=== PATIENT | female | born 1955 | race Two or more races ===

== ENCOUNTER 2024-04-28 06:12 | Inpatient (IN) | payer OTHER, MEDICAID ==
[~2024-04-28] VITALS: Ht 165.1 cm; Wt 77.9 kg
[~2024-04-28 06:12] MED LIST: GABA-1250 PO; IBUP-1456 PO; MONT5CHW12 PO; TIOT17SP IN
[2024-04-28] MEDS ORDERED: levoFLOXacin 750MG 150 ML IV ONE (06:45)
--- NOTE | 2024-04-28 07:28 | DVHHP2 ---
Admitting Diagnosis: cervical spinal stenosis History of Present Illness Home Meds Reported Medications Ibuprofen (Ibuprofen) 800 Mg Tab, 800 MG PO, MG 04/22/24 Tiotropium [place] Monohydrate (Spiriva Respimat) 2.5 Mcg/Act Spr, 2.5 MCG IN, SPRAY 04/22/24 Montelukast Sodium (Singulair) 5 Mg Chw, 2 TAB PO DAILY, #30 TAB 5 Refills 04/22/24 Gabapentin (Gabapentin) 300 Mg Cap, 300 MG PO for 30 Days, MG 04/22/24 Timing/Duration of Neck Pain: Getting worse Quality of Neck Pain: Aching, Burning, Cramping Neck Pain Radiation: Head Method of Injury/Prior Factors: Other Modifying Factors for Neck Alisa: Movement, Pain medication Associated Symptoms of Neck Pa: Muscle spasms Review of Systems Constitutional: No symptom reported Ears, Nose, & Throat: No symptom reported Eyes: No symptom reported Pulmonary/Respiratory: No symptom reported Cardiovascular: No symptom reported Gastrointestinal: No symptom reported Genitourinary: No symptom reported Musculoskeletal: Neck pain Skin: No symptom reported Psychiatric: No symptom reported Endocrine: No symptom reported Hemotologic/Lymphatic: No symptom reported H&P Exam General Appeara: Well developed, Well nourished, Normal Appearance Head Exam: Normal inspection Neck Exam: Normal inspection, Non-tender, Normal alignment Eye Exam: bilateral eye Normal inspection, bilateral eye PERRL, bilateral eye EOMI Ear Exam: bilateral ear Auricle normal, bilateral ear Canal normal, bilateral ear TM normal Nasal Exam: Normal inspection Mouth: Normal Inspection Pulmonary/Respiratory: Normal inspection, Normal breath sounds, Chest non- tender, Lungs clear Cardiovascular/Chest: Normal inspection, Regular rate, Normal Rhythm Rectal Exam: Deferred Back Exam: Normal inspection Pelvic Exam: External exam normal, Bimanual exam normal, Speculum exam normal Male Genital Exam: Not done Shoulder Exam: Normal inspection, Non-tender, Normal ROM Elbow/Forearm Exam: Normal inspection, Non-tender, Normal ROM Wrist Exam: Normal inspection, Non-tender, Normal ROM Hand Exam: Normal inspection, Non-tender, Normal ROM Hip exam: Normal inspection, Non-tender, Normal range of motion Legs: bilateral leg non-tender, bilateral leg normal inspection, bilateral leg normal range of motion, bilateral leg no evidence of injury Knees: bilateral knee non-tender, bilateral knee normal inspection, bilateral knee normal range of motion, bilateral knee no evidence of injury Ankle Exam: bilateral ankle Normal inspection, bilateral ankle Non-tender, bilateral ankle Normal range of motion, bilateral ankle No evidence of injury Foot: bilateral foot non-tender, bilateral foot normal inspection, bilateral foot normal range of motion, bilateral foot no evidence of injury Tendon/ Neuro: Motor deficit, Sensory deficit ELECTROTYPE CASTER Exam: Normal hearing, Normal speech, PERRL Motor/Sensory: Sensory deficit, Weak motor strength RUE, Weak motor strength LUE Deep Tendon Ref: All intact Neuro/Mental St: Alert, Oriented Appearance: Appropriate appearance, Appropriate insight Eye contact/ Speech: Cooperative, Good eye contact, Normal speech Coordination/Gait: Abnormal gait Skin Exam: Normal inspection, Normal color, Warm/dry Lymphatic: Normal inspection Assessment/Plan Primary Diagnosis cervical spinal stenosis with severe radiculopathy Plan admit for elective cervical spinal surgery Plan discussed with: Patient MARLENA DALE MD Apr 28, 2024 07:28
[2024-04-28] MEDS ORDERED: fentaNYL CITRATE 100 MCG/2 ML VL ONE ×2 (07:50→07:56)
[2024-04-28] MEDS ORDERED: PROPOFOL 10 MG/ML 20 ML IV ONE ×3 (07:55→11:49)
[2024-04-28] MEDS ORDERED: PHENYLEPHRINE HCL 10 MG/ML VL ONE (08:03)
[2024-04-28] MEDS ORDERED: ONDANSETRON HCL 4 MG/2 ML VIAL IV PRN (08:15)
[2024-04-28] MEDS ORDERED: NITROGLYCERIN 0.4 MG SL TAB SL PRN (08:15)
[2024-04-28] MEDS ORDERED: MORPHINE SULFATE INJ 2 MG/ml SYRG IV PRN (08:15)
[2024-04-28] MEDS ORDERED: ACETAMINOPHEN 325 MG TAB PO PRN (08:15)
[2024-04-28] MEDS ORDERED: ePHEDrine SULFATE 50 MG/ML AMP ONE (08:41)
[2024-04-28] MEDS ORDERED: DexAMETHasone SOD PHOS 10MG/1ML VIAL INJ ONE (08:51)
[2024-04-28] MEDS ORDERED: ONDANSETRON HCL 4 MG/2 ML VIAL ONE (08:51)
[2024-04-28] MEDS ORDERED: fentaNYL CITRATE 5 ML ONE (10:03)
--- NOTE | 2024-04-28 10:09 | DVHOP2 ---
Operative Report - 2 Report Details Date: 04/28/24 Preop Diagnosis: cervical degenerative disc disease with spinal stenosis and cervical degenerative kyphosis causing incpacitating neck pain and radiculopathy Postop Diagnosis: 1. cervical degenerative disc disease with spinal stenosis and cervical degenerative kyphosis causing incpacitating neck pain and radiculopathy 2. cervical spondylolisthesdis at cervical 6/7 Surgeon: Henrry Doan MD Fish Bait Picker: Bekah Dover NP Anesthesiologist: shasta Anesthesia: General Consent: The patient was informed of the risks and benefits of the procedure. These include but are not limited to complications of anesthesia, postoperative infection, incomplete relief of symptoms, recurrence of symptoms, damage to blood vessels, nerves and tendons, deep venous thrombosis, pulmonary embolism and possible need for repeat surgery in the future. Name of Procedure Performed see detailed note Procedure Details Procedure Details: Pre Op Diagnosis: Cervical Degenerative Disk Disease and Severe Spinal Stenosis Causing incapacitating neck pain, radiculopathy and progressive neurologic deficit Post Op Diagnosis: 1. Cervical Degenerative Disk Disease and Spinal Stenosis Causing incapacitating neck pain, radiculopathy and progressive neurologic deficit Procedure: Cervical 3 to 4 anterior cervical discectomy with Cervical 3-4 foraminotomies and facetectomies to decompression the spinal canal and Cervical 4 nerve roots Cervical 4 to 5 anterior cervical discectomy with Cervical 4-5 foraminotomies and facetectomies to decompression the spinal canal and Cervical 5 nerve roots Cervical 5 to 6 anterior cervical discectomy with Cervical 5-6 foraminotomies and facetectomies to decompression the spinal canal and Cervical 6 nerve roots Cervical 6 to 7 anterior cervical discectomy with cervical 6-7 foraminotomies and facetectomies to decompress then spinal canal and cervical 7 nerve roots Cervical 3-7 anterior cervical Fusion Cervical 3-7 anterior cervical instrumentation with freestanding cages Cervical 3-4 placement of allograft prosthetic device Cervical 4-5 placement of allograft prosthetic device Cervical 5-6 placement of allograft prosthetic device Cervical 6-7 placement of allograft prosthetic device Microscope for micro dissection Surgeon: Henrry Doan MD Anesthesia: General Assist: Bekah Dover NP Fluids and EBL: see anesthesia note Procedure Note: The patient was seen in the Pre-anesthesia Care Unit and the site of the incision was initialed by me with a felt tipped marker. All questions by the patient were answered to the satisfaction of the patient and the chart was reviewed. The patient was taken to the operating room and placed supine on the [facility] Flat top table. General anesthesia was induced. Neuromonitoring leads were placed. A rolled towel was placed between the shoulder blades to hyperextend out the chest which will allow better exposure of the cervical spine. Halter traction to 10 pounds was placed. The arms were padded and adducted to the patients side making sure all pulses in the hands were present. Tape traction was undertaken on the shoulders to give us better radiographic exposure of the distal cervical spine. A gel-pad was placed under the occiput and 5 degrees of extension was placed on the neck without adverse effects to the patient. The anterior neck was prepped and draped. Pre-operative antibiotics were given 30 minutes prior to the start of the procedure. A c-arm fluoroscope was used to luciana out the incision site. At this time, a time out was taken per usual protocol. Next an incision was made through the skin with a 15 blade scalpel through the subcutaneous tissue down to the platysma. Self-retainers were placed. The platysma was incised along the longitudinal border with a Metzenbaum scissors. Blunt dissection was made through the deep cervical and pre-tracheal fascia taking care to protect the carotid sheath laterally and the Trachea/esophagus medially. The dissection was carried down to the prevertebral fascia. Any crossing vessels were ligated using a vascular clip or coagulated with a bovie. An esophageal retractor was next used to retract the trachea/esophagus and a bent [address] through the anterior annulus of the cervical disk and a lateral C-arm fluoroscopic image was taken to confirm that we were at the correct level. Next, bovie electrocautery was used to expose the bones of cervical 3,4,5,6 and bipolar electrocuatery was used to lift up the Longus colli and capitus muscles. Black-Belt Self Retainers were used to retract the longus colli and capitus muscles bilaterally as well as the trachea/esophagus to the right and the carotid sheath to the left. Smooth thin Black-Belt retractors were placed proximally and distally and a needle was placed again in the anterior annulus of the disk and an image taken to confirm the correct level. At this point, the microscope was wheeled in and an 11 blade scalpel incised the anterior annulus of the cervical 3/4 and 4/5 and 5/6 disks. Next, straight and curved curettes removed the remainder of the disks all the way down to the posterior longitudinal ligament. Carefully, a Kerison number one rongeur incised the posterior longitudinal ligament at the lateral end of the above disks and using a micro, blunt tip nerve hook to separate the posterior longitudinal ligament from the dura, alternating 1 mm and 2 mm Kerison rongeurs removed the posterior longitudinal ligament. Next, Kerison 1mm and 2 mm rongeurs were alternated to get under the uncinate processes and undercut them to perform foraminotomies and factectomies at the cervical 3/4 and 4/5 and 5/6 levels to decompress the central canal and cervical 4,5,6 and 7 nerve roots. Next the microscope was wheeled away and the c-arm fluoroscope was wheeled into the field and a lateral image was obtained. Increasing size graft trials were used starting at a 5 mm thick size until the proper tension in the disk space and height latter day obtained. We then placed final free standing cages at C3/4 and 4/5 ,5/6 . 7mm at C3/4 and C4/5 and 6mm at C5/6. Once the above 3 levels were decompressed and stabilized, a spondylolisthesis of about 5mm anteriorly that was unstable and moving 5mm was noted at the Cervical 6/7 level. The standard of care required stabilization of any spondylolisthesis at the adjacent level to the fusion construct so a discectomy was performed at the Cervical 6/7 disc without difficulty and a 7mm interbody device was palced at this level. The palced of the device reduced the spondylolisthsis at the Cervical 6/7 level. Satisfactory placement was confirmed in the AP and lateral views using a C-arm fluoroscope. Copious irrigation of the wound with sterile saline and all bleeding was controlled before closure initiated. At this point, a 10 Slov[place] [address] Drain was place deep to the Platysma muscle and the Platysma was approximated with one interrupted 0-Vicryl suture. The subcutaneous tissue was closed with interrupted 2-0 vicryl sutures and the skin was closed with berny. Sterile dressings were placed and a cervical collar placed, the patient extubated, transferred to the stretcher and taken to the Recovery Room in unremarkable condition. Other Notes: Following the case, in PACU, the patient had placement of a Denhoff J equivalent cervical collar and external bone stimulator Condition Stable Disposition Still a Patient HENRRY DOAN MD Apr 28, 2024 10:09
[2024-04-28 10:16] VITALS: PULSE 89; PULSE 92; RESP 12; O2SAT 98
--- NOTE | 2024-04-28 10:26 | POSTOP ---
Post-Operative Note Post-Operative Note Preop Diagnosis 1. cervical degenerative disc disease with spinal stenosis and cervical degenerative kyphosis causing incapacitating neck pain and radiculopathy 2. cervical spondylolisthesis at cervical 6/7 Postop Diagnosis: 1. cervical degenerative disc disease with spinal stenosis and cervical degenerative kyphosis causing incpacitating neck pain and radiculopathy 2. cervical spondylolisthesdis at cervical 6/7 Operation performed Cervical 3 to 7 anterior cervical discectomy with Cervical 3-7 foraminotomies and facetectomies to decompression the spinal canal and Cervical nerve roots Specimen None Anesthesia: General Anesthesiologist: Dr. Davidson Blood Loss(fluid mgmt) See anesthesia record Tourniquet Time None Surgeon Dr Henrry Doan Manager Risk Bekah Donovan [facility], DIRECTOR EHS Complications & Mgmt None Additional Remarks Disposition: -Pending -Discharge RX: Pending -Follow up appointment: [place] [id number] [facility] [address] [place] [phone] -Pain: - IV pain meds post op day 1, with PO supplementation, goal is to progress weaning off IV medications and control pain with PO only. morphine 1mg q 4 hours (PAIN 7-10) - P.O. analgesics:Tylenol 650MG (PAIN 1-3) [place] 10/325 mg (PAIN 4-6) - Muscle relaxers scheduled administration. This is a beneficial medications for the incisional pain as it is mostly related to muscle spasms. Flexeril 10 mg TID - Cepacol throat lozenges as needed for sore throat -Antibiotics Operative recommendations: -Postoperative dose:-Post operative antibiotics cefazolin 1 g IV piggyback every 8 hours x 48 hours total of 6 doses -DVT PPX: -Hold all chemical DVT/ blood thinners for 14 days postoperatively -use mechanical DVT PPX such as SCD's, ambulation -Activity: -Pending PT evaluation and patients progression -Sit at side of bed for meals -Goal: Ambulate independently and safely (may use assistive devices if needed) -Brace: - [place] collar for comfort per pt discretion, -Medical Therapy goals: -Afebrile- Patient may develop a expected post operative fever by day 2-3, this may not be accompanied with a elevation in WBC. if fever develops: Acetaminophen for fever. Albuterol nebulizer Tx every 12 hours for 24 hours to facilitate adequate lung expansion and prevent development of atelectasis. -Euglycemic: bloods sugars under 130mmol/L for optimal healing -Normotensive: Avoid events of hypertension. This helps to keep post operative healing intact and avoids destabilization of beneficial hemostatic coagulation. Drains -Bulb drains: record output and characteristics of the drainage at least once a shift. These will be to thumbprint compression unless otherwise ordered. Record output Wound drainage is described by type, color, amount, and odor. Drainage can be 1 serous: Clear and thin, may be present in healing healthy wound. 2 serosanguineous containing blood may also be present and healthy healing wound 3. Sanguinous primarily blood 4. Purulent this is thick, white, and pus like. It may be indicated to give of a infection and should constitute a call to the provider immediately with the plan that the sample should be cultured. -Reed: -DC in OR -Dressings -Anterior cervical patients: Initial surgical dressing may be reinforced if needed. If there is excessive bleeding, leaking, drainage in the bulb drain notify provider -Bowel management: -Colace 100mg bid -Diet: -Clear liquid diet and advance as patient tolerates within dietary limitations ( example: diabetic, Cardiac) -Incentive Spirometer: -10 x hour while awake, RN please educate and observe repeat demonstration, have IS at bedside POD #1 -X-rays: - none indicated at this time -Consults: -Physical Therapy evaluation, treatment recommendations, and discharge recommendations Call with questions Giovanna Donovan [facility]- Orthopaedic Spine Surgery nurse practitioner For Dr Pinky Doan [phone]- for staff use only Patient was examined, chart reviewed, labs evaluated, and diagnostic studies and findings analyzed. Case was discussed with Dr. Henrry Doan who formulated the plan of care. This medical document was created using an electronic medical record system with theScore dictation system. Although this document has been carefully reviewed, there might still be some phonetic and typographical errors. These areas are purely typographical due to imperfections of the software programs, and do not reflect any compromise in the patient's medical care. Date 04/28/24 Time 10:25 BEKAH DONOVAN NP Apr 28, 2024 10:26
[2024-04-28] MEDS ORDERED: ONDANSETRON HCL 4 MG/2 ML VIAL IV ONE (10:30)
[2024-04-28] MEDS ORDERED: MEPERIDINE HCL (25 MG/ML) 1ML VIAL IV PRN (10:30)
[2024-04-28 10:31] VITALS: O2SAT 99
[2024-04-28] MEDS ORDERED: MEPERIDINE HCL (50 MG/ML) 1 ML VIAL ONE (10:50)
[2024-04-28] MEDS: TRANEXAMIC ACID 20 ML ONE (10:51)
[2024-04-28] MEDS: LIDOCAINE W/ EPINEPHRINE 1% 20ML VIAL ONE (10:51)
[2024-04-28] MEDS: LIDOCAINE 2% JELLY 11ml (GLYDO) ONE (10:51)
[2024-04-28] MEDS: SUCCINYLCHOLINE CHLORIDE 20 MG/ML 10ML VIAL IV ONE (10:52)
[2024-04-28] MEDS: ceFAZolin 2 GM/D5W100ml 100 ML IV ONE (10:52)
[2024-04-28] MEDS: HYDROCORTISONE SOD SUCC 100 MG/2ML INJ VIAL IV ONE (11:54)
[2024-04-28] MEDS: ACETAMINOPHEN IV 1000 MG/100ML (10MG/ML) IV PRN (11:54)
[2024-04-28] MEDS: HYDROmorphone HCL 2 MG/ML VL/or syr IV PRN (12:02)
[2024-04-28] MEDS ORDERED: methylPREDNISolone SOD SUCC 40 MG/ML VL ONE (12:06)
[2024-04-28 12:36] VITALS: PULSE 102; RESP 12; O2SAT 99
--- NOTE | 2024-04-28 14:06 | DVH ---
EXAM: XY CERVICAL SPINE 3V, XY C ARM FLUOROSCOPY UP TO 60MIN HISTORY: C5-7 DISCECTOMY/FUSION FLUOROSCOPY TIME: 33.4 seconds Total dose: 3.52 mGy FLUOROSCOPY IMAGES: 12 TECHNIQUE: Intraoperative radiographs of the cervical spine were obtained. COMPARISON: None FINDINGS/IMPRESSION: Refer to intraoperative report for further evaluation.
[2024-04-28] MEDS: D5W/SOD CHLO 0.9% 1,000 ML IV SCH (14:48)
[2024-04-28] MEDS: ceFAZolin 1GM/50ML 50 ML IV SCH (14:48)
[2024-04-28] MEDS: CYCLOBENZAPRINE HCL 10 MG TAB PO SCH (14:50)
[2024-04-28 16:40] VITALS: BP 120/75; PULSE 102; RESP 17; TEMP 98.6; O2SAT 93
[2024-04-28] MEDS: HYDROcodone-ACET 10/325MG TAB PO PRN (16:41)
[2024-04-28 20:00] VITALS: PULSE 109; PULSE 88; RESP 18
[2024-04-28 21:00] VITALS: BP 119/59; PULSE 104; RESP 20; TEMP 98; O2SAT 94
[2024-04-28] MEDS: DOCUSATE SOD 100 MG CAP PO SCH (22:00)
[2024-04-28] MEDS: MORPHINE SULFATE INJ 2 MG/ml SYRG IV PRN (22:22)
[2024-04-29] VITALS (8 sets, daily range): BP systolic 122–143; BP diastolic 8–82; PULSE 73–100; RESP 16–20; TEMP 98–99.4; O2SAT 92–94
--- NOTE | 2024-04-29 08:57 | DVHPN2 ---
Progress Note - Surgical Date Seen: Apr 29, 2024 Post op day Post op day: 1 Subjective Patient reports: No new complaints, Feels better Review of Systems: HEENT:Normal, CVS:Normal, RESPIRATORY:Normal, GI:Normal, :Normal, MSK:Normal, NEURO:Normal Objective Vital signs Vital Sign Date Time Temp Pulse Resp B/P (MAP) Pulse Ox O2 Delivery O2 Flow Rate FiO2 04/29/24 08:01 18 Nasal Cannula* 2 28 04/29/24 05:00 98.3 100 122/68 (86) 92 98.3 Total Intake and Output 04/28/24 04/28/24 04/29/24 15:00 23:00 07:00 Intake Total 1440 ml 1850 ml Output Total 650 ml 1500 ml Balance -650 ml 1440 ml 350 ml Medications Current Medications Medications Dose Ordered Sig/Nora Route Start Time Stop Time Status Last Admin Dose Admin Dextrose/Sodium Chloride 1,000 ml @ 100 mls/hr Q10H IV 04/28/24 08:15 04/29/24 01:13 100 MLS/HR Ondansetron HCl 4 mg Q4HP PRN IV 04/28/24 08:15 Acetaminophen 650 mg Q6HP PRN PO 04/28/24 08:15 Acetaminophen/ Hydrocodone Bitart 1 tab Q6HP PRN PO 04/28/24 08:15 04/28/24 16:41 1 TAB Morphine Sulfate 1 mg Q4HP PRN IV 04/28/24 08:15 04/28/24 22:22 1 MG Cyclobenzaprine HCl 10 mg TID PO 04/28/24 14:00 04/29/24 05:29 10 MG Docusate Sodium 100 mg BID PO 04/28/24 10:00 04/28/24 22:18 100 MG Cefazolin Sodium 50 ml @ 100 mls/hr Q8HR IV 04/28/24 14:00 04/29/24 05:29 100 MLS/HR Nitroglycerin 0.4 mg Q5MINP PRN SL 04/28/24 08:15 Morphine Sulfate 2 mg Q30M PRN IV 04/28/24 08:15 Examination: GENERAL:Normal, HEENT:Normal, NECK:Normal (Experiencing expected postoperative pain, drain in place with minimal drainage removed today), LUNGS:Normal, CVS:Normal, ABDOMEN:Normal, MSK:Normal, SKIN:Normal (Left anterior cervical wound well approximated with berny and Steri-Strips), NEURO:Normal (Patient states that she still has some tingling which is different than her preoperative symptoms to her left hand. She states that it was 4. And now it is tingling which was an improvement.) Problem List/Assessment/Plan Problems: (1) Cervical stenosis of spinal canal (2) Muscle spasms of neck (3) Postoperative pain after spinal surgery Assessment and Plan Disposition: Plan to discharge tomorrow morning patient's pharmacy is closed now -Pending -Discharge RX: Pending -Follow up appointment: [place] [id number] [facility] [address] [place] [phone] -Pain: - IV pain meds post op day 1, with PO supplementation, goal is to progress weaning off IV medications and control pain with PO only. morphine 1mg q 4 hours (PAIN 7-10) - P.O. analgesics:Tylenol 650MG (PAIN 1-3) [place] 10/325 mg (PAIN 4-6) - Muscle relaxers scheduled administration. This is a beneficial medications for the incisional pain as it is mostly related to muscle spasms. Flexeril 10 mg TID - Cepacol throat lozenges as needed for sore throat -Antibiotics Operative recommendations: -Postoperative dose:-Post operative antibiotics cefazolin 1 g IV piggyback every 8 hours x 48 hours total of 6 doses -DVT PPX: -Hold all chemical DVT/ blood thinners for 14 days postoperatively -use mechanical DVT PPX such as SCD's, ambulation -Activity: -Pending PT evaluation and patients progression -Sit at side of bed for meals -Goal: Ambulate independently and safely (may use assistive devices if needed) -Brace: - [place] collar for comfort per pt discretion, -Medical Therapy goals: -Afebrile- Patient may develop a expected post operative fever by day 2-3, this may not be accompanied with a elevation in WBC. if fever develops: Acetaminophen for fever. Albuterol nebulizer Tx every 12 hours for 24 hours to facilitate adequate lung expansion and prevent development of atelectasis. -Euglycemic: bloods sugars under 130mmol/L for optimal healing -Normotensive: Avoid events of hypertension. This helps to keep post operative healing intact and avoids destabilization of beneficial hemostatic coagulation. Drains -Bulb drains: record output and characteristics of the drainage at least once a shift. These will be to thumbprint compression unless otherwise ordered. Record output Wound drainage is described by type, color, amount, and odor. Drainage can be 1 serous: Clear and thin, may be present in healing healthy wound. 2 serosanguineous containing blood may also be present and healthy healing wound 3. Sanguinous primarily blood 4. Purulent this is thick, white, and pus like. It may be indicated to give of a infection and should constitute a call to the provider immediately with the plan that the sample should be cultured. -Reed: -DC in OR -Dressings -Anterior cervical patients: Initial surgical dressing may be reinforced if needed. If there is excessive bleeding, leaking, drainage in the bulb drain notify provider -Bowel management: -Colace 100mg bid -Diet: -Clear liquid diet and advance as patient tolerates within dietary limitations ( example: diabetic, Cardiac) -Incentive Spirometer: -10 x hour while awake, RN please educate and observe repeat demonstration, have IS at bedside POD #1 -X-rays: - none indicated at this time -Consults: -Physical Therapy evaluation, treatment recommendations, and discharge recommendations Call with questions Giovanna Donovan ACNP- Orthopaedic Spine Surgery nurse practitioner For Dr Pinky Doan [phone]- for staff use only Patient was examined, chart reviewed, labs evaluated, and diagnostic studies and findings analyzed. Case was discussed with Dr. Henrry Doan who formulated the plan of care. This medical document was created using an electronic medical record system with HItviews dictation system. Although this document has been carefully reviewed, there might still be some phonetic and typographical errors. These areas are purely typographical due to imperfections of the software programs, and do not reflect any compromise in the patient's medical care. Plan discussed with Plan discussed with: Patient, Other (Krys [phone]) Visit Coding Surgery Date of Service if different f: Apr 29, 2024 Billing Provider: KYLE DONOVAN NP Surgery Visit Codes: NOT BILLABLE KYLE DONOVAN NP Apr 29, 2024 08:57
--- NOTE | 2024-04-29 14:30 | DVHINCON2 ---
Date Seen: Apr 29, 2024 Referring Physician Orthopedic spine surgery,DR Henrry Doan. Reason for Consultation Medical management. History of Present Illness 68-year-old female with a known history of peripheral neuropathy, chronic neck pain initially presented to the hospital for elective procedure for cervical radiculopathy status post C3-4/C4-5/C5-6/C6-7 anterior cervical diskectomy with a fusion surgery. Patient is currently complaining of minimal neck pain. Denies any fevers chills nausea vomiting diarrhea hematemesis hematochezia nelly na dysuria hematuria. Past Medical History Peripheral neuropathy Chronic neck pain Past Surgical History Right elbow surgery Right hip replacement Cervical radiculopathy status post C3-4/C4-5/C5-6/C6-7 anterior cervical diskectomy with fusion surgery. Family History: Chronic obstructive pulmonary disease G8 MOTHER, Onset:Unknown Diabetes mellitus G8 MOTHER, Onset:Unknown G8 BROTHER, Onset:Unknown G8 BROTHER, Onset:Unknown G8 SISTER, Onset:Unknown G8 SISTER, Onset:Unknown Hypercholesterolemia G8 BROTHER, Onset:Unknown G8 SISTER, Onset:Unknown Hypertension G8 MOTHER, Onset:Unknown G8 BROTHER, Onset:Unknown G8 BROTHER, Onset:Unknown G8 SISTER, Onset:Unknown G8 SISTER, Onset:Unknown Ischemic heart disease G8 BROTHER, Onset:Unknown Allergies: Coded Allergies: Codeine (Verified Adverse Reaction, Intermediate, Vomiting, 04/22/24) Home Meds Reported Medications Ibuprofen (Ibuprofen) 800 Mg Tab, 800 MG PO HS, MG 04/22/24 Tiotropium [place] Monohydrate (Spiriva Respimat) 2.5 Mcg/Act Spr, 2.5 MCG IN, SPRAY 04/22/24 Montelukast Sodium (Singulair) 5 Mg Chw, 2 TAB PO DAILY, #30 TAB 5 Refills 04/22/24 Gabapentin (Gabapentin) 300 Mg Cap, 300 MG PO HS for 30 Days, MG 04/22/24 Review of Systems Twelve review of system are negative besides mentioned above. 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 Labs/Diagnostic Data Labs Test 04/28/24 15:05 Range/Units Assessment 68-year-old female with a known history of chronic neck pain, peripheral neuropathy initially presented to the hospital for cervical radiculopathy. 1. Peripheral neuropathy 2. Cervical radiculopathy status post C3-4/C4-5/C5-6/C6-7 anterior cervical diskectomy with a fusion surgery. Postop day 1 -continue pain meds as needed, DVT GI prophylaxis -orthopedic spine surgery follow up. Problems(with codes): (1) Cervical stenosis of spinal canal (2) Muscle spasms of neck (3) Postoperative pain after spinal surgery Plan discussed with: Patient Date of Service: Apr 29, 2024 Billing Provider: JILLIAN CHRISTIANSON MD Common Visit Codes: NOT BILLABLE JILLIAN CHRISTIANSON MD Apr 29, 2024 14:30
[2024-04-30 01:00] VITALS: BP 137/79; PULSE 83; RESP 16; TEMP 98.3; O2SAT 94
[2024-04-30 04:41] VITALS: BP 147/80; PULSE 82; RESP 16; TEMP 98.6; O2SAT 94
[2024-04-30 09:18] VITALS: BP 150/86; PULSE 87; RESP 17; TEMP 97.8; O2SAT 92
[2024-04-30 13:14] VITALS: BP_SYST 105; BP_SYST 134; BP_DIAS 42; BP_DIAS 84; PULSE 89; RESP 21; TEMP 98.1; O2SAT 91
[2024-04-30] MEDS ORDERED: HYDR-4798 PO (13:33)
[2024-04-30] MEDS ORDERED: DOCU-265 PO (13:33)
[2024-04-30] MEDS ORDERED: CYCL-611 PO (13:33)
--- NOTE | 2024-04-30 13:43 | DVHDS2 ---
ASSESSMENT ASSESSMENT Hospital Course The patient arrived for a elective spine surgery with Dr. DOAN. Surgery went as planned with no complications. After a short stay in the PACU patient was admitted to the hospital for postoperative care and pain management over the course of 2 postoperative days the patient was able to tolerate a diet, ambulate independently, the pain has been managed with oral analgesics. The surgical site is well-approximated with sutures, some residual drainage continues from drain insertion sites after removal, however it is manageable with daily wound care and dressing changes. Some improvement to preoperative symptoms of extremities, strength and motion. There is new post operative pain that is localized to the surgical site. The patient will follow-up with Dr. Doan for wound check and suture check or staple removal. The patient may use cervical collar for comfort and while mobilizing, and riding in the car. Patient is ambulating safely, still has some residual soreness when he swallows. He may use Cepacol lozenges that he can obtain [id number] once an hour. Spoke to patient about using ice to help soothe the discomfort. It should start diminishing over the next few days. You may turn her head from [id number]-xm-ygzz slowly to establish her range of motion and to keep the muscles active. You may resume your normal previous diet, please be careful not to eat any excessive sugars and monitor your blood sugar closely. Excessively high blood sugars can lead to higher chances of getting a wound infection to your surgical site. Please call Dr. Kumar's office if you do not have an appointment already set up. Call [phone] for a appointment [id number] [facility], [facility] [address] [address] Your prescribed oral pain medication, and muscle relaxers as well as a stool softener You may let your wound be open to air as long as there is no clothing touching the site. When you shower you may let the water run over your surgical incision however do not scrub the incision. Use a sterile 4x4s to pat the incision dry. If you are going to be out in public and wearing clothes they are coming into contact with your incision you must wear a dressing. Assessment 1. cervical degenerative disc disease with spinal stenosis and cervicaldegenerative kyphosis causing incpacitating neck pain and radiculopathy2. 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 KYLE DONOVAN NP Apr 30, 2024 13:43
--- NOTE | 2024-04-30 13:47 | DVHDS2 ---
Discharge Summary Date of Admission Apr 28, 2024 at 08:50 Date of Discharge: Apr 30, 2024 Admitting Diagnosis Pre Op Diagnosis: Cervical Degenerative Disk Disease and Severe Spinal Stenosis Causing incapacitating neck pain, radiculopathy and progressive neurologic deficit Post Op Diagnosis: 1. Cervical Degenerative Disk Disease and Spinal Stenosis Causing incapacitating neck pain, radiculopathy and progressive neurologic deficit Wounds: Left anterior neck wound well approximated with berny and Steri-Strips, drain site is clear some occasional drainage is expected and patient verbalized understanding Labs/Diagnostic Data: Laboratory Results Test 04/28/24 15:05 Hepatitis B Surface Antigen Negative (Negative) Brief Hx & Hospital Course: The patient arrived for a elective spine surgery with Dr. DOAN. Surgery went as planned with no complications. After a short stay in the PACU patient was admitted to the hospital for postoperative care and pain management over the course of 2 postoperative days the patient was able to tolerate a diet, ambulate independently, the pain has been managed with oral analgesics. The surgical site is well-approximated with sutures, some residual drainage continues from drain insertion sites after removal, however it is manageable with daily wound care and dressing changes. Some improvement to preoperative s ymptoms of extremities, strength and motion. There is new post operative pain that is localized to the surgical site. The patient will follow-up with Dr. Doan for wound check and suture check or staple removal. The patient may use cervical collar for comfort and while mobilizing, and riding in the car. Patient is ambulating safely, still has some residual soreness when he swallows. He may use Cepacol lozenges that he can obtain [id number] once an hour. Spoke to patient about using ice to help soothe the discomfort. It should start diminishing over the next few days. You may turn her head from [id number]-se-zftl slowly to establish her range of motion and to keep the muscles active. You may resume your normal previous diet, please be careful not to eat any excessive sugars and monitor your blood sugar closely. Excessively high blood sugars can lead to higher chances of getting a wound infection to your surgical site. Please call Dr. Kumar's office if you do not have an appointment already set up. Call [phone] for a appointment [id number] [facility], [facility] [address] [address] Your prescribed oral pain medication, and muscle relaxers as well as a stool softener You may let your wound be open to air as long as there is no clothing touching the site. When you shower you may let the water run over your surgical incision however do not scrub the incision. Use a sterile 4x4s to pat the incision dry. If you are going to be out in public and wearing clothes they are coming into contact with your incision you must wear a dressing. Operations or Procedures Cervical 3 to 7 anterior cervical discectomy with Cervical 3-7 foraminotomies and facetectomies to decompression the spinal canal and Cervical nerve roots Condition at Discharge: Good Final Diagnosis/Problems List post Op Diagnosis: 1. Cervical Degenerative Disk Disease and Spinal Stenosis Causing incapacitating neck pain, radiculopathy and progressive neurologic deficit Acute postoperative pain status post spine surgery of the cervical area Problems List: (1) Cervical stenosis of spinal canal Status: Resolved (2) Postoperative pain after spinal surgery Status: Acute (3) Muscle spasms of neck Status: Acute Discharge Disposition: Home Discharge Instruct/Medications Diet: Regular Diet comment: Resume normal diet Activity: No Restrictions, As Tolerated Activity comment: Do not wear your cervical collar too much it will create weaken muscles. Wear for comfort, continue to move her head [id number]-nd-[id number] and forwards and backwards as tolerated No driving while you are taking narcotic pain medication Follow Up/Referral: Call [phone] for a appointment, or if you have an appointment please keep your scheduled postoperative appointment [id number] [facility], [facility] [address] [id number] Medications: Continue home medication postoperative medications and muscle relaxers were called in for you at your preferred pharmacy New Medications: Cyclobenzaprine HCl (Cyclobenzaprine Hydrochlo) 10 Mg Tab 10 MG PO TID for 30 Days, #90 TAB Docusate Sodium (Docusate Sodium) 100 Mg Cap 100 MG PO BID for 30 Days, #60 CAP Hydrocodone-Acetaminophen (Hydrocodone Bitartrate/AC 10-325 mg) 1 Tab Tab 1 TAB PO Q6HP PRN for 14 Days, #56 TAB Continued Medications: Gabapentin (Gabapentin) 300 Mg Cap 300 MG PO HS for 30 Days, MG Ibuprofen (Ibuprofen) 800 Mg Tab 800 MG PO HS, MG Montelukast Sodium (Singulair) 5 Mg Chw 2 TAB PO DAILY, #30 TAB 5 Refills Tiotropium [place] Monohydrate (Spiriva Respimat) 2.5 Mcg/Act Spr 2.5 MCG IN, SPRAY Discharge Statement: "Patient was advised to return to the ER or call 911 if any headaches, dizziness, shortness of breath, chest pain, abdominal pain, bleeding, fevers, or worsening of medical condition. Patient was counseled about treatment plan, medications, possible side effects, patientverbalized understanding. All questions were answered to the best of my ability. This discharge took greater then 30 minutes in planning, reviewing documentation, counseling the patient, and discussing with other team members." ASSESSMENT ASSESSMENT Hospital Course The patient arrived for a elective spine surgery with Dr. DOAN. Surgery went as planned with no complications. After a short stay in the PACU patient was admitted to the hospital for postoperative care and pain management over the course of 2 postoperative days the patient was able to tolerate a diet, ambulate independently, the pain has been managed with oral analgesics. The surgical site is well-approximated with sutures, some residual drainage continues from drain insertion sites after removal, however it is manageable with daily wound care and dressing changes. Some improvement to preoperative symptoms of extremities, strength and motion. There is new post operative pain that is localized to the surgical site. The patient will follow-up with Dr. Doan for wound check and suture check or staple removal. The patient may use cervical collar for comfort and while mobilizing, and riding in the car. Patient is ambulating safely, still has some residual soreness when he swallows. He may use Cepacol lozenges that he can obtain [id number] once an hour. Spoke to patient about using ice to help soothe the discomfort. It should start diminishing over the next few days. You may turn her head from jwmf-pj-fmff slowly to establish her range of motion and to keep the muscles active. You may resume your normal previous diet, please be careful not to eat any excessive sugars and monitor your blood sugar closely. Excessively high blood sugars can lead to higher chances of getting a wound infection to your surgical site. Please call Dr. Kumar's office if you do not have an appointment already set up. Call [phone] for a appointment [id number] [facility], [address], [place] [address] Your prescribed oral pain medication, and muscle relaxers as well as a stool softener You may let your wound be open to air as long as there is no clothing touching the site. When you shower you may let the water run over your surgical incision however do not scrub the incision. Use a sterile 4x4s to pat the incision dry. If you are going to be out in public and wearing clothes they are coming into contact with your incision you must wear a dressing. Assessment Resolved after surgery. Problems: (1) Postoperative pain after spinal surgery Assessments: Acute, patient is healing well and as expected she is experiencing normal postoperative pain to her surgical site to the left anterior neck (2) Muscle spasms of neck Assessments: Well-controlled with muscle relaxers, acute (3) Cervical stenosis of spinal canal Assessments: Resolved after surgery. KYLE DONOVAN NP Apr 30, 2024 13:47
== END 2024-04-30 16:45 | disposition home health service (06) | DRG 473 ==
LOC: SUR 06:12 → TELE 08:50 → TELE-WESTW 12:40
PROVIDERS: ADMIT Orthopaedic Surgery; ATTEND Internal Medicine
PROC: 01N10ZZ Release Cervical Nerve, Open Approach (ICD-10-PCS; 2024-04-28)
PROC: 00NW0ZZ Release Cervical Spinal Cord, Open Approach (ICD-10-PCS; 2024-04-28)
PROC: 0RB30ZZ Excision of Cervical Vertebral Disc, Open Approach (ICD-10-PCS; 2024-04-28)
PROC: 4A11X4G Monitoring of Peripheral Nervous Electrical Activity, Intraoperative, External Approach (ICD-10-PCS; 2024-04-28)
PROC: 0RG20A0 Fusion of 2 or more Cervical Vertebral Joints with Interbody Fusion Device, Anterior Approach, Anterior Column, Open Approach (ICD-10-PCS; principal; 2024-04-28 07:23)
DX: M48.02 Spinal stenosis, cervical region (principal); G62.9 Polyneuropathy, unspecified; G89.29 Other chronic pain; M40.292 Other kyphosis, cervical region; M62.838 Other muscle spasm; M50.10 Cervical disc disorder with radiculopathy, unspecified cervical region; Z83.3 Family history of diabetes mellitus; Z82.5 Family history of asthma and other chronic lower respiratory diseases; Z82.49 Family history of ischemic heart disease and other diseases of the circulatory system; Z79.899 Other long term (current) drug therapy; Z96.641 Presence of right artificial hip joint; G89.18 Other acute postprocedural pain; Z88.5 Allergy status to narcotic agent
CPT/HCPCS: 36415; 72040; 76000; 86850; 86900; 86901; 87340; 97110; 97116; 97163; 97530; G0378; J0131; J0330; J1100; J2405; J2704; J7042